=== PATIENT | female | born 1965 ===

== ENCOUNTER 2019-11-11 11:03 | Outpatient (CLI) | payer OTHER | END 2019-11-11 11:12 | disposition home or self-care (01) | LOC: SONOGRAMA 11:03 | PROVIDERS: ATTEND Pathology Anatomic Pathology & Clinical Pathology | DX: E04.2 Nontoxic multinodular goiter (principal) ==

== ENCOUNTER 2020-12-03 09:40 | Outpatient (CLI) | payer OTHER | END 2020-12-03 13:41 | disposition home or self-care (01) | LOC: MRI 09:40 | PROVIDERS: ATTEND Colon & Rectal Surgery | DX: K60.5 Anorectal fistula (principal) | CPT/HCPCS: 72197 ==

== ENCOUNTER 2021-01-27 07:55 | Day surgery (SDC) | payer OTHER ==
[~2021-01-27 07:55] MED LIST: PLAVIX75 MG PO; TOPROL XL50 M1 PO
== END 2021-01-27 17:25 | disposition home or self-care (01) ==
LOC: CIR.AMB 07:55
PROVIDERS: ATTEND Colon & Rectal Surgery
DX: K60.3 Anal fistula (principal); K62.0 Anal polyp; Z20.822 Contact with and (suspected) exposure to COVID-19

== ENCOUNTER 2023-01-04 06:20 | Day surgery (SDC) | payer OTHER | END 2023-01-04 17:15 | disposition home or self-care (01) | LOC: CIR.AMB 06:20 | PROVIDERS: ATTEND Colon & Rectal Surgery | DX: K60.3 Anal fistula (principal); Z88.6 Allergy status to analgesic agent; Z91.013 Allergy to seafood; Z20.822 Contact with and (suspected) exposure to COVID-19; K60.5 Anorectal fistula ==

== ENCOUNTER 2023-05-31 07:21 | Day surgery (SDC) | payer OTHER ==
[2023-05-31] MEDS ORDERED: METRONIDAZOLE/SODIUM CHLORIDE 500 MG/100 ML PIGGYBACK IV ONE (08:32)
[2023-05-31] MEDS ORDERED: CEFTRIAXONE SODIUM 2,000 MG VIAL ONE (08:32)
[2023-05-31] MEDS ORDERED: HEMOSTATIC MATRIX 1 KIT KIT TOP ONE (12:28)
[2023-05-31] MEDS ORDERED: POVIDONE-IODINE 118 ML BOTT TOP ONE (12:28)
[2023-05-31] MEDS ORDERED: DIBUCAINE 15 GM OINT..GM. TUBE ONE (12:28)
== END 2023-05-31 19:20 | disposition home or self-care (01) ==
LOC: CIR.AMB 07:21
PROVIDERS: ATTEND Colon & Rectal Surgery
DX: K60.3 Anal fistula (principal); K60.5 Anorectal fistula; Z88.6 Allergy status to analgesic agent; Z91.013 Allergy to seafood; Z20.822 Contact with and (suspected) exposure to COVID-19